=== PATIENT | female | born 1980 | race Caucasian/White ===

== ENCOUNTER → 2017-10-22 | Outpatient (CLI) | payer OTHER ==
--- NOTE | 2017-10-22 11:54 | US ---
EXAMINATION TYPE: US pelvis complete transvag DATE OF EXAM: 10/22/2017 COMPARISON: 2014 CLINICAL HISTORY: R10.2 Pelvic pain. TECHNIQUE: Transvaginal (TV) and Transabdominal (TA) tv supplemental adnexa and endometrium Date of LMP: 10/14/2017 EXAM MEASUREMENTS: Uterus: 8.7 x 6.7 x 4.7 cm Endometrial Stripe: 2.4 cm Right Ovary: 2.2 x 2.4 x 2.1 cm Left Ovary: 1.9 x 1.3 x 1.9 cm 1. Uterus: Retroverted heterogenous 2. Endometrium: thick 3. Right Ovary: cysts 1.0 x 1.1 x 1.9 cm, 1.3 x 0.8 x 0.9 cm 4. Left Ovary: small follicular cysts 5. Bilateral Adnexa: rt adnexa mass 2.0 x 1.6 x 2.1 cm. This is heterogenous with mixed echogenicity . 6. Posterior cul-de-sac: wnl IMPRESSION: 1. Right ovarian cyst. 2. A right ovarian mass is also present. Follow-up exam in 6 weeks is recommended.
== END | disposition home or self-care (01) ==
LOC: RADUSWWP 10:17
PROVIDERS: ATTEND Obstetrics & Gynecology
DX: N83.201 Unspecified ovarian cyst, right side (principal); N83.8 Other noninflammatory disorders of ovary, fallopian tube and broad ligament
CPT/HCPCS: 76830; 76856

== ENCOUNTER → 2017-11-26 | Outpatient (CLI) | payer OTHER ==
[2017-11-26 14:04] LABS: Basophils # (A) 0.1 k/uL (0-0.2); Basophils % (A) 1 %; Eosinophils # (A) 0.1 k/uL (0-0.7); Eosinophils % (A) 2 %; HCT 41.2 % (34.0-46.0); Lymphocytes # (A) 2.5 k/uL (1.0-4.8); Lymphocytes % (A) 30 %; MCH 27.9 pg (25.0-35.0); MCHC 31.5 g/dL (31.0-37.0); MCV 88.5 fL (80.0-100.0); Mean Platelet Volume 7.5; Monocytes # (A) 0.4 k/uL (0-1.0); Monocytes % (A) 5 %; Neutrophils # (A) 5.1 k/uL (1.3-7.7); Neutrophils % (A) 61 %; Platelet Count 352 k/uL (150-450); RBC 4.66 m/uL (3.80-5.40); RDW 12.8 % (11.5-15.5); WBC 8.4 k/uL (3.8-10.6)
== END | disposition home or self-care (01) ==
LOC: LABPAT 13:01
PROVIDERS: ATTEND Obstetrics & Gynecology
DX: Z01.818 Encounter for other preprocedural examination (principal)
CPT/HCPCS: 36415; 85025

== ENCOUNTER 2017-12-02 11:30 | Day surgery (SDC) | payer OTHER ==
[2017-11-24 09:29] VITALS: BMI 43.5
[~2017-12-02 11:30] MED LIST: DEXAMETHASONE SOD PHOSPHATE 10 MG/ML 1 ML VIAL IV ONE; HYDROmorphone 0.5 MG/0.5 ML SYRINGE IVP PRN; LACTATED RINGERS 1,000 ML IV SCH; LIDOCAINE 1% 20 ML VIAL (10MG/ML) FOR IV START INTRADERMA PRN; MIDAZOLAM 2 MG/2 ML VIAL IV PRN; ONDANSETRON 4 MG/2 ML VIAL IVP ONE; Pre Op ABX Message 1 EACH MISC MISCELLANE ONE
--- NOTE | 2017-12-02 12:13 | P.HPOB ---
History of Present Illness H&P Date: 12/02/17 Chief Complaint: Dysfunctional bleeding with thickened endometrium Arden is a 37-year-old female who has pelvic pain and heavy vaginal bleeding. In discussing her ultrasound and her pain is noted that she had a 2.4 cm endometrial lining. There is questionable polyp versus possible hyperplasia. She is scheduled for D&C with hysteroscopy. Risks/benefits/alternatives to this procedure were discussed with the patient in detail and all questions are answered for her prior to proceeding to the operating room. Long-term options will be discussed with her once we have pathology. On physical exam this is a well-developed well-nourished female whose HEENT is unremarkable. Her heart is regular, lungs are clear, extremities are without pain. Osteopathic exams unremarkable. Pelvic exam is otherwise unremarkable. Assessment dysfunctional heavy bleeding with thickened endometrium. Plan D&C with hysteroscopy. Past Medical History Past Medical History: No Reported History Additional Past Medical History / Comment(s): HX OF OVARIAN CYST ., STATES HAVING PAIN IN HER SIDES. History of Any Multi-Drug Resistant Organisms: None Reported Past Surgical History: No Surgical Hx Reported Additional Past Surgical History / Comment(s): ovarian cyst removed in 2004 Past Anesthesia/Blood Transfusion Reactions: Postoperative Nausea & Vomiting ( PONV) Additional Past Anesthesia/Blood Transfusion Reaction / Comment(s): PT THINKS PONV DUE TO NORCO. Past Psychological History: No Psychological Hx Reported Smoking Status: Never smoker Past Alcohol Use History: Rare Past Drug Use History: None Reported - Past Family History Father Family Medical History: No Reported History Medications and Allergies Home Medications Medication Instructions Recorded Confirmed Type No Known Home Medications [No 11/24/17 11/24/17 History Known Home Medications] Allergies Allergy/AdvReac Type Severity Reaction Status Date / Time Penicillins Allergy Rash/Hives Verified 11/24/17 09:15 Exam Osteopathic Statement: *. No significant issues noted on an osteopathic structural exam other than those noted in the History and Physical/Consult. - Vital Signs Vital signs: Vital Signs Temp Pulse Resp BP Pulse Ox 12/02/17 11:56 98.2 F 79 16 185/91 100
[2017-12-02] MEDS ORDERED: KETOROLAC 30 MG/ML 1 ML VIAL ONE (12:30)
[2017-12-02] MEDS ORDERED: LIDOCAINE 1% INJ 10MG/ML (20 ML MDV) ONE (12:30)
[2017-12-02] MEDS ORDERED: fentaNYL (PF) 50 MCG/ML 2 ML AMP ONE (12:30)
[2017-12-02] MEDS ORDERED: SUCCINYLCHOLINE CHLORIDE 100 MG/5 ML SYR IV ONE (12:30)
[2017-12-02] MEDS ORDERED: PROPOFOL 10 MG/ML 20 ML VIAL IV ONE (12:30)
[2017-12-02] MEDS ORDERED: MIDAZOLAM 2 MG/2 ML VIAL ONE (12:30)
--- NOTE | 2017-12-02 12:54 | P.OP ---
Date of Procedure: 12/02/17 Preoperative Diagnosis: Pelvic pain and heavy vaginal bleeding Postoperative Diagnosis: Same Procedure(s) Performed: D&C with hysteroscopy Anesthesia: ELENI Surgeon: Gavin Rodriguez Estimated Blood Loss (ml): 5 Pathology: other (Uterine curettings) Condition: stable Disposition: same day Operative Findings: Proliferative endometrium Description of Procedure: Arden was taken to the operating suite where a general anesthetic was found be adequate. She was prepped and draped in the normal sterile fashion and placed in the dorsal lithotomy position. Initially a weighted speculum was inserted into the vagina and the anterior lip of the cervix was identified and grasped with an Allis clamp. Cervix was then dilated and camera was inserted. Proliferative endometrium was noted possible polyp on the anterior surface of the uterine wall. Sharp curettings were then obtained and placed on Telfa and sent to pathology for evaluation. All instruments were then removed sponge, lap , needle counts are correct 2 and patient was then taken to the recovery room in stable and satisfactory condition. Plan - Discharge Summary New Discharge Prescriptions: New Ibuprofen [Motrin] 600 mg PO Q6HR PRN #30 tab PRN Reason: Pain Discharge Medication List Ibuprofen [Motrin] 600 mg PO Q6HR PRN #30 tab 12/02/17 [Rx] Follow up Appointment(s)/Referral(s): Gavin Rodriguez DO [Doctor of Osteopathic Medicine] - 10 Days Activity/Diet/Wound Care/Special Instructions: No heavy lifting, limit stairs and driving, and pelvic rest. If any high temperatures, heavy bleeding, or severe pain call my office Discharge Disposition: HOME SELF-CARE
[2017-12-02 13:03] VITALS: TEMP 97
[2017-12-02 13:19] VITALS: RESP 16
[2017-12-02] MEDS ORDERED: IBUPROFEN 200 MG TAB PO ONE (14:38)
[2017-12-02 15:15] VITALS: BP 143/82; PULSE 77
== END 2017-12-02 15:28 | disposition home or self-care (01) ==
LOC: OR 11:30
PROVIDERS: ATTEND Obstetrics & Gynecology
DX: R93.8 Abnormal findings on diagnostic imaging of other specified body structures (principal); Z88.0 Allergy status to penicillin
CPT/HCPCS: 81025; 88305; 58558; J2250; J1100; J2405; J2001; J3010; J1885; J0330; J2704

== ENCOUNTER → 2018-03-16 | Outpatient (CLI) | payer OTHER ==
[2018-03-16 15:34] LABS: Basophils % (A) 0 %; Eosinophils # (A) 0.2 k/uL (0-0.7); Eosinophils % (A) 3 %; HCT 38.5 % (34.0-46.0); HGB 12.3 gm/dL (11.4-16.0); Lymphocytes # (A) 2.2 k/uL (1.0-4.8); Lymphocytes % (A) 28 %; MCH 27.9 pg (25.0-35.0); MCHC 31.9 g/dL (31.0-37.0); MCV 87.5 fL (80.0-100.0); Mean Platelet Volume 7.9; Monocytes # (A) 0.4 k/uL (0-1.0); Monocytes % (A) 5 %; Neutrophils # (A) 4.9 k/uL (1.3-7.7); Neutrophils % (A) 62 %; Platelet Count 347 k/uL (150-450); RDW 13.5 % (11.5-15.5)
== END | disposition home or self-care (01) ==
LOC: LABPAT 15:01
PROVIDERS: ATTEND Obstetrics & Gynecology
DX: Z01.812 Encounter for preprocedural laboratory examination (principal)
CPT/HCPCS: 36415; 85025

== ENCOUNTER 2018-03-25 06:31 | Day surgery (SDC) | payer OTHER ==
[2018-03-16 14:50] VITALS: BMI 44.6
--- NOTE | 2018-03-24 18:25 | P.HPOB ---
History of Present Illness H&P Date: 03/24/18 Chief Complaint: menorrhagia Patient is a 37-year-old with heavy vaginal bleeding. She relates that she has such heavy bleeding with each cycle that she is unable to function and sometimes cannot leave her home. Is significantly impacting her activities of daily daily living. She is therefore scheduled for a D&C with hysteroscopy and NovaSure ablation. Risks/benefits/alternatives were discussed with the patient in detail and included with but not limited to bleeding, infection, perforation , thermal injuries and potentially chronic pain. Past Medical History Past Medical History: No Reported History Additional Past Medical History / Comment(s): HX OF OVARIAN CYST. HEAVY IRREGULAR MENSES History of Any Multi-Drug Resistant Organisms: None Reported Past Surgical History: No Surgical Hx Reported Additional Past Surgical History / Comment(s): ovarian cyst removed in 2004. 12/02/17 D & C w/HYSTEROSCOPY Past Anesthesia/Blood Transfusion Reactions: Postoperative Nausea & Vomiting ( PONV) Additional Past Anesthesia/Blood Transfusion Reaction / Comment(s): PT THINKS PONV DUE TO NORCO. Smoking Status: Never smoker - Past Family History Father Family Medical History: No Reported History Medications and Allergies Home Medications Medication Instructions Recorded Confirmed Type Ibuprofen [Motrin] 600 mg PO Q6HR PRN #30 tab 12/02/17 03/16/18 Rx Allergies Allergy/AdvReac Type Severity Reaction Status Date / Time Penicillins Allergy Rash/Hives Verified 03/16/18 14:46 Exam Osteopathic Statement: *. No significant issues noted on an osteopathic structural exam other than those noted in the History and Physical/Consult. - OBG Physical Exam Breast: both: normal (no masses) Abdomen: Morbidly obese Abdomen: bowel sounds normal, no diffuse tenderness, no bruit present, no guarding noted, no hepatomegaly, no splenomegaly, no mass Vulva: both: normal Vagina: normal moisture, no discharge Cervix: no lesion, no discharge Uterus: normal size, normal contour Adnexa: both: normal Anus/Rectum: normal perianal skin, no rectal mass, no hemorrhoids, heme negative
[~2018-03-25 06:31] MED LIST changes: -DEXAMETHASONE SOD PHOSPHATE 10 MG/ML 1 ML VIAL IV ONE; -LIDOCAINE 1% 20 ML VIAL (10MG/ML) FOR IV START INTRADERMA PRN; -MIDAZOLAM 2 MG/2 ML VIAL IV PRN; -ONDANSETRON 4 MG/2 ML VIAL IVP ONE; +ONDANSETRON 4 MG/2 ML VIAL IVP PRN; +fentaNYL (PF) 50 MCG/ML 2 ML AMP IV PRN
[2018-03-25] MEDS ORDERED: fentaNYL (PF) 50 MCG/ML 2 ML AMP ONE (07:45)
[2018-03-25] MEDS ORDERED: SUCCINYLCHOLINE CHLORIDE 100 MG/5 ML SYR IV ONE (07:45)
[2018-03-25] MEDS ORDERED: MIDAZOLAM 2 MG/2 ML VIAL ONE (07:45)
[2018-03-25] MEDS ORDERED: LIDOCAINE 1% INJ 10MG/ML (20 ML MDV) ONE (07:45)
[2018-03-25] MEDS ORDERED: PROPOFOL 10 MG/ML 20 ML VIAL IV ONE (07:45)
--- NOTE | 2018-03-25 08:20 | P.OP ---
Date of Procedure: 03/25/18 Preoperative Diagnosis: Menorrhagia Postoperative Diagnosis: Same with cervical polyp Procedure(s) Performed: Removal of cervical polyp and NovaSure with hysteroscopy Anesthesia: ELENI Surgeon: Gavin Rodriguez Estimated Blood Loss (ml): 2 Urine output (ml): 100 Pathology: other (Cervical polyp) Condition: stable Disposition: same day Operative Findings: Small cervical polyp removed with polyp forceps Description of Procedure: Patient was taken to the operating suite where a general anesthetic was found be adequate. She was prepped and draped in the normal sterile fashion placed in dorsal lithotomy position. Red rubber catheters used to drain the bladder of urine. And uterus was sounded to 10 cm. Initially a weighted speculum was inserted into the vagina and the anterior lip cervix identified and grasped with an Allis clamp. Cervix was then dilated and camera was inserted. A small cervical polyp was noted and was removed with polyp forceps. Once this was Pushed NovaSure system was brought in with a length of 5 and a width of 4.7 it was tested and enabled once it passes patency test. It didn't burn for 2 minutes. At the conclusion the burn camera was reinserted and good burn was noted. Sponge, lap, needle counts were all correct 2 at that point all instruments removed and patient was taken to the recovery room in stable and satisfactory condition. She will be discharged home once stable Plan - Discharge Summary New Discharge Prescriptions: New Ibuprofen [Motrin] 600 mg PO Q6HR PRN #30 tab PRN Reason: Pain No Action Ibuprofen [Motrin] 600 mg PO Q6HR PRN #30 tab PRN Reason: Pain Discharge Medication List Ibuprofen [Motrin] 600 mg PO Q6HR PRN #30 tab 12/02/17 [Rx] Ibuprofen [Motrin] 600 mg PO Q6HR PRN #30 tab 03/25/18 [Rx] Follow up Appointment(s)/Referral(s): Gavin Rodriguez DO [Doctor of Osteopathic Medicine] - 2 Weeks Activity/Diet/Wound Care/Special Instructions: No heavy lifting, limit stairs and driving, and pelvic rest. If any high temperatures, heavy bleeding, or severe pain call my office
[2018-03-25 08:35] VITALS: TEMP 97.1
[2018-03-25 09:06] VITALS: RESP 16
[2018-03-25] MEDS ORDERED: KETOROLAC 30 MG/ML 1 ML VIAL IVP ONE (09:06)
[2018-03-25 09:39] VITALS: BP 153/78; PULSE 67
== END 2018-03-25 10:37 | disposition home or self-care (01) ==
LOC: OR 06:31
PROVIDERS: ATTEND Obstetrics & Gynecology
DX: N84.0 Polyp of corpus uteri (principal); N92.0 Excessive and frequent menstruation with regular cycle; Z87.42 Personal history of other diseases of the female genital tract; Z88.0 Allergy status to penicillin
CPT/HCPCS: 81025; 88305

== ENCOUNTER → 2019-09-30 | Outpatient (CLI) | payer BC ==
--- NOTE | 2019-10-03 09:44 | MM ---
Reason for exam: screening (asymptomatic). Baseline mammogram. History: Family history of breast cancer in paternal aunt at age 50. Took hormonal contraceptives beginning at age 19. Physical Findings: Nurse did not find any significant physical abnormalities on exam. MG Screening Mammo w CAD Bilateral CC and MLO view(s) were taken. The breast tissue is heterogeneously dense. This may lower the sensitivity of mammography. There is a right lower inner quadrant lobulated 3.5 x 1.2cm mass 5.5cm from nipple. No suspicious abnormality on the left. These results were verbally communicated with the patient and result sheet given to the patient on 09/30/19. ASSESSMENT: Incomplete: need additional imaging evaluation, BI-RAD 0 RECOMMENDATION: Ultrasound of the right breast.
--- NOTE | 2019-10-03 09:48 | USB ---
Reason for exam: additional evaluation requested from abnormal screening. History: Family history of breast cancer in paternal aunt at age 50. Took hormonal contraceptives beginning at age 19. US Breast Workup Limited RT Right limited breast ultrasound including focal area of concern, retroareolar and axilla demonstrates a 3.4 x 1.4 x 0.9cm oval, hypoechoic lesion at 3 o'clock, oval and linear. Debris filled duct and cyst versus solid vascular lesion These results were verbally communicated with the patient and result sheet given to the patient on 09/30/19. ASSESSMENT: Suspicious, BI-RAD 4 RECOMMENDATION: Aspiration of the right breast. (+/- core biopsy) Called Dr. Salguero's office with mammographic findings. Cyst aspiration scheduled for 10/17/19 at 8:00. PRELIMINARY REPORT CALLED AND FAXED TO DR. SALGUERO ON 09/30/19.
== END | disposition home or self-care (01) ==
LOC: RADMAMWWP 15:21
PROVIDERS: ATTEND Family Medicine
DX: Z12.31 Encounter for screening mammogram for malignant neoplasm of breast (principal); R92.8 Other abnormal and inconclusive findings on diagnostic imaging of breast
CPT/HCPCS: 77067

== ENCOUNTER → 2019-10-14 | Day surgery (SDC) | payer BC ==
[2019-10-13 09:17] VITALS: BMI 45.1
[~2019-10-14] MED LIST changes: -HYDROmorphone 0.5 MG/0.5 ML SYRINGE IVP PRN; +LACTATED RINGERS 1,000 ML IV ONE; +LIDOCAINE 1% 20 ML VIAL (10MG/ML) FOR IV START INTRADERMA ONE; +LIDOCAINE 1% INJ 10MG/ML (20 ML MDV) ONE; -ONDANSETRON 4 MG/2 ML VIAL IVP PRN; +PROPOFOL 10 MG/ML 20 ML VIAL IV ONE; -Pre Op ABX Message 1 EACH MISC MISCELLANE ONE; -fentaNYL (PF) 50 MCG/ML 2 ML AMP IV PRN
[2019-10-14 09:10] VITALS: TEMP 97.8
--- NOTE | 2019-10-14 09:51 | P.PCN ---
Date of Procedure: 10/14/19 Procedure(s) Performed: BRIEF HISTORY: Patient is a 38-year-old pleasant white female scheduled for an elective colonoscopy as a part of screening for colorectal neoplasia. She has family history of colon cancer diagnosed in her mother at age 65. PROCEDURE PERFORMED: Colonoscopy With snare polypectomy PREOPERATIVE DIAGNOSIS: screening for colon cancer/family history of colon cancer. IV sedation per Anesthesia. PROCEDURE: After informed consent was obtained, the patient, was brought into the endoscopy unit. IV sedation was administered by Anesthesia under continuous monitoring. Digital rectal examination was normal. Initially the Olympus CF-160 flexible video colonoscope was then inserted in the rectum, gradually advanced into the cecum without any difficulty. Careful examination was performed as the scope was gradually being withdrawn. Ileocecal valve and the appendiceal orifice were visualized and appeared normal. Prep was excellent. Mucosa of the cecum, appeared normal. In the ascending colon there was a 7-8 mm sessile polyp that was removed by snare polypectomy. Rest of the ascending colon, transverse colon, descending colon, sigmoid colon, and rectum appeared normal. Retroflexion was performed in the rectum and no lesions were seen. The patient tolerated the procedure well. IMPRESSION: 7 mm sessile ascending colon polyp status post polypectomy Rest of the colon appeared normal RECOMMENDATIONS: Findings of this examination were discussed with the patient as well as a family. She was advised to follow with the biopsy doesn't have a repeat screening colonoscopy every 5 years because of the family history of colon cancer.. 14
[2019-10-14 10:16] VITALS: RESP 18
[2019-10-14 10:27] VITALS: BP 155/106; PULSE 69
== END ==
LOC: ORWHC2ENDO 08:56
PROVIDERS: ATTEND Internal Medicine Gastroenterology
DX: Z12.11 Encounter for screening for malignant neoplasm of colon (principal); K63.5 Polyp of colon; Z80.0 Family history of malignant neoplasm of digestive organs; Z88.0 Allergy status to penicillin
CPT/HCPCS: 81025; 88305; 45385; J2001; J2704

== ENCOUNTER → 2019-10-17 | Day surgery (SDC) | payer BC ==
[2019-10-17 07:34] VITALS: RESP 16; TEMP 97.9
[2019-10-17 09:30] VITALS: BP 157/85; PULSE 75
--- NOTE | 2019-10-17 12:05 | USB ---
EXAMINATION TYPE: US biopsy breast VAD RT, Postbiopsy MG diagnostic mammo RT wo CAD DATE OF EXAM: 10/17/2019 CLINICAL HISTORY: 38-year-old female R92.8 ABNORMAL MAMMOGRAM. TECHNIQUE: Ultrasound guided core biopsy of the 3:00 position right breast. COMPARISON: 09/30/2019 FINDINGS: The procedure of ultrasound guided core biopsy was explained to the patient. Benefits, alternatives, and risks were discussed. An informed consent was then obtained. The patient was placed in supine positioning for imaging and for the procedure. The overlying skin was prepped and draped in usual sterile fashion. Lidocaine was used as anesthetic into the skin and subcutaneous tissue up to area of concern in the 3:00 right breast. Under ultrasound guidance, 13-gauge vacuum-assisted mammotome Elite biopsy gun device was used to obtain 10 core samples. Following this, a ribbon clip was left in lesion. The patient tolerated the procedure well without any immediate complication. The patient was kept in the radiology department for short stay after the procedure and then discharged home in stable condition. Postprocedure mammogram shows clip appropriately positioned at the site of large focal asymmetry, approximately 2:00 position on the true lateral view. IMPRESSION: Successful, uncomplicated ultrasound guided core biopsy of the sizable, possible intraductal abnormality in the 2-3 o'clock right breast. Full pathology results to follow. Pathology Results: Benign RIGHT BREAST, 3:00 POSITION (CORE BIOPSIES): Fibroadenoma. Recommendation Follow up ultrasound of the right breast in 6 months. YAMILA
== END ==
LOC: RADUSWWP 07:19
PROVIDERS: ATTEND Family Medicine
DX: D24.1 Benign neoplasm of right breast (principal)
CPT/HCPCS: 88305; 77065; 19083; A4648; J2001

== ENCOUNTER → 2022-04-02 | Outpatient (CLI) | payer OTHER ==
--- NOTE | 2022-04-02 18:53 | XR ---
EXAMINATION TYPE: XR humerus LT DATE OF EXAM: 04/02/2022 COMPARISON: NONE HISTORY: Pain TECHNIQUE: 2 view FINDINGS: Shoulder joint and elbow joint appear intact. I see no fracture nor dislocation. IMPRESSION: Negative left humerus exam.
--- NOTE | 2022-04-03 08:31 | XR ---
EXAMINATION TYPE: XR shoulder complete LT DATE OF EXAM: 04/02/2022 COMPARISON: NONE HISTORY: Pain TECHNIQUE: Shoulder examined in 3 projections FINDINGS: The humeral head articulates with the glenoid. The acromio-clavicular junction is normal. No acute fractures or dislocations are evident. A follow up study can be performed 7-10 days from acute trauma for continued pain. IMPRESSION: 1. No acute osseous abnormality left shoulder
== END | disposition home or self-care (01) ==
LOC: RADXRMAIN 13:49
PROVIDERS: ATTEND Emergency Medicine
DX: M25.512 Pain in left shoulder (principal)

== ENCOUNTER → 2022-05-21 | Outpatient (CLI) | payer BC, OTHER ==
--- NOTE | 2022-05-21 22:45 | MR ---
EXAMINATION TYPE: MR shoulder LT wo con DATE OF EXAM: 05/21/2022 COMPARISON: Outside left shoulder x-ray May 08, 2022 HISTORY: Left shoulder pain for 10 weeks due to fall. TECHNIQUE: Multiplanar, multisequence imaging of the left shoulder is performed without contrast. FINDINGS: Rotator Cuff: Areas of increased signal throughout several portions of the distal supraspinatus and i nfraspinatus tendons with areas of tearing near the articular surface. Supraspinatus tendon is intact . Rotator cuff muscle bulk is preserved. Acromioclavicular Joint: Moderate narrowing and capsular hypertrophy. No significant spurring. Underl laura fat plane maintained. Glenohumeral Joint: Small to moderate size joint effusion. [id number] narrowing. No significant spurring. Labrum: The labrum appears grossly intact given limitation of non-arthrogram study. Biceps Tendon: The long head of biceps is not identified in normal location presumed dislocated. Tear ing is suspected as anchor in the superior labrum is not identified. Bone marrow signal: No focal abnormal marrow signal is appreciated. Other: No additional significant abnormality is appreciated. IMPRESSION: 1. Long head biceps dislocation and probable tear, correlate clinically. 2. Tendinosis and partial tearing throughout supraspinatus and infraspinatus tendons. No full-thickne ss retracted tear. 3. Fairly moderate degenerative changes as detailed above.
== END | disposition home or self-care (01) ==
LOC: RADMRIMAIN 20:00
PROVIDERS: ATTEND Orthopaedic Surgery
DX: M75.112 Incomplete rotator cuff tear or rupture of left shoulder, not specified as traumatic (principal); M19.012 Primary osteoarthritis, left shoulder; S43.005A Unspecified dislocation of left shoulder joint, initial encounter

== ENCOUNTER → 2022-07-04 | Outpatient (CLI) | payer SELFPAY ==
[2022-07-04 18:17] LABS: Anion Gap 10.1 mmol/L (10.00-18.00); Carbon Dioxide 26.1 mmol/L (20.0-27.5); Potassium 4.6 mmol/L (3.5-5.5)
[2022-07-04 18:25] LABS: Basophils # (A) 0.05 X 10*3/uL (0.00-0.10); Basophils % (A) 0.7 %; Eosinophils # (A) 0.22 X 10*3/uL (0.04-0.35); Eosinophils % (A) 3.2 %; HCT 44.1 % (37.2-46.3); Immature Grans, Automated 0.4 %; Lymphocytes # (A) 1.65 X 10*3/uL (0.90-5.00); Lymphocytes % (A) 24.3 %; MCH 30.4 pg (27.0-32.0); MCHC 31.7 g/dL (32.0-37.0); MCV 95.9 fL (80.0-97.0); Mean Platelet Volume 11.4 fL (9.5-12.2); Monocytes # (A) 0.48 X 10*3/uL (0.20-1.00); Monocytes % (A) 7.1 %; NRBC Per 100 WBC 0 /100 WBCS (0.0-0.0); Neutrophils # (A) 4.37 X 10*3/uL (1.80-7.70); Neutrophils % (A) 64.3 %; Platelet Count 338 X 10*3/uL (140-440); RDW 12.7 % (11.5-14.5)
== END | disposition home or self-care (01) ==
LOC: LABPAT 09:05
PROVIDERS: ATTEND Orthopaedic Surgery
DX: Z01.812 Encounter for preprocedural laboratory examination (principal); M75.42 Impingement syndrome of left shoulder
CPT/HCPCS: 80051; 85025

== ENCOUNTER 2022-07-11 06:10 | Day surgery (SDC) | payer BC, OTHER ==
[2022-07-09 11:34] VITALS: BMI 48.4
--- NOTE | 2022-07-10 08:57 | P.HPOR ---
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 She is having persistent anterior and lateral pain with overhead activity and at night. She's been on work restrictions. She denies previous injuries. Review of Systems As per HPI Past Medical History Past Medical History: No Reported History Additional Past Medical History / Comment(s): HX OF OVARIAN CYST. HEAVY IRREGULAR MENSES History of Any Multi-Drug Resistant Organisms: None Reported Past Surgical History: Tubal Ligation, Uterine Ablation Additional Past Surgical History / Comment(s): ovarian cyst removed in 2004. 12/02/17 D & C w/HYSTEROSCOPY. Colonoscopy 2018 Past Anesthesia/Blood Transfusion Reactions: Postoperative Nausea & Vomiting (PONV) Additional Past Anesthesia/Blood Transfusion Reaction / Comment(s): PT THINKS PONV DUE TO NORCO. Smoking Status: Never smoker - Past Family History Mother Family Medical History: Cancer Additional Family Medical History / Comment(s): stage 3 colon cancer Father Family Medical History: No Reported History Medications and Allergies Home Medications Medication Instructions Recorded Confirmed Type No Known Home Medications 10/04/19 07/09/22 History Allergies Allergy/AdvReac Type Severity Reaction Status Date / Time Penicillins Allergy Rash/Hives Verified 07/09/22 11:30 Physical Examination - Shoulder left Tenderness with palpation: anterior, bicipital groove Pain: with forward flexion ROM: abduction: 140 degrees ROM: forward flexion: 140 degrees ROM: internal rotation: lower lumbar ROM: external rotation: 70 degrees Strength: abduction: 5/5 Strength: external rotation: 5/5 Tests: internal impingement tests: positive Results The patient is a well-developed well-nourished female, approximate 5 foot 6, 300 pounds of endomorphic habitus. HEENT exam is nonfocal. Neck is supple. On the left shoulder, she is tender over the anterior subacromial space and bicipital groove. Tucker, Neer, and speed tests are positive. Her distal neurovascular appears intact in left upper extremity. - Diagnostic results Shoulder MRI: image reviewed (Reveals a partial-thickness tear involving the anterior aspect of the supraspinatus along with dislocation of the proximal biceps.) Assessment and Plan Assessment: Left partial thickness rotator cuff tear/biceps dislocation Plan: I talked to the patient at length regarding her condition along with treatment options. At this point she is quite symptomatic after this acute injury. After thorough discussion she opted to proceed with surgery. We'll plan to proceed with arthroscopic evaluation with probable subacromial decompression, possible rotator cuff debridement versus repair, in addition to possible biceps tenotomy. We will likely perform that as an outpatient procedure. Risks and benefits were discussed at length in layman's terms.
[~2022-07-11 06:10] MED LIST changes: +DEXAMETHASONE SOD PHOSPHATE 4 MG/ML 1 ML VIAL IV ONE; +HYDROmorphone 0.5 MG/0.5 ML SYRINGE IVP PRN; -LACTATED RINGERS 1,000 ML IV ONE; -LIDOCAINE 1% 20 ML VIAL (10MG/ML) FOR IV START INTRADERMA ONE; -LIDOCAINE 1% INJ 10MG/ML (20 ML MDV) ONE; +ONDANSETRON 4 MG/2 ML VIAL IVP ONE; -PROPOFOL 10 MG/ML 20 ML VIAL IV ONE; +ceFAZolin 3 GM in SODIUM CHLORIDE 0.9% 100 ML IVPB PRN
[2022-07-11] MEDS ORDERED: LIDOCAINE 1% (10MG/ML) FOR IV START INTRADERMA ONE (06:55)
[2022-07-11] MEDS ORDERED: fentaNYL (PF) 50 MCG/ML 2 ML AMP IV ONE (07:10)
[2022-07-11] MEDS ORDERED: MIDAZOLAM 2 MG/2 ML VIAL IV ONE (07:10)
--- NOTE | 2022-07-11 07:40 | P.ANPRN ---
Procedure Note - Anesthesia - Nerve Block Performed Left Interscalene Single Time Out Performed: Yes (0710) Date of Procedure: 07/11/22 Procedure Start Time: 07:14 Location of Patient: PreOp Indication: Acute Post-Operative Pain, Requested by Surgeon Specifically requested for management of pain by DrAshley: Adrian Wang Sedation Type: Sedate with meaningful contact maintained Preparation: Sterile Prep Position: Supine Catheter: None Needle Types: Pajunk Needle Gauge: 21 Ultrasound used to visualize needle placement: Yes Ultrasound used to observe medication spread: Yes Injectate: 0.5% Ropivacaine (see comment for volume) (30cc) Blood Aspirated: No Pain Paresthesia on Injection Noted: No Resistance on Injection: Normal Image Stored and Saved: Yes Events: Uneventful and Well Tolerated
[2022-07-11] MEDS ORDERED: LIDOCAINE 2% INJ 20 MG/ML (2 ML VIAL) ONE (07:45)
[2022-07-11] MEDS ORDERED: ROPIVACAINE 5 MG/ML 30 ML VIAL ONE (07:45)
[2022-07-11] MEDS ORDERED: PROPOFOL 10 MG/ML 20 ML VIAL IV ONE (07:45)
[2022-07-11] MEDS ORDERED: ePHEDrine 50 MG/ML 1 ML VIAL ONE (07:45)
[2022-07-11] MEDS ORDERED: SUCCINYLCHOLINE CHLORIDE 200 MG/10 ML VIAL IV ONE (07:45)
[2022-07-11] MEDS ORDERED: fentaNYL (PF) 50 MCG/ML 2 ML AMP ONE (07:45)
[2022-07-11] MEDS ORDERED: EPINEPHrine (PF) 1 ML in SODIUM CHLORIDE 0.9% IRRIGATIO 3,000 ML IRRIGATION ONE ×8 (08:27)
--- NOTE | 2022-07-11 09:11 | P.OP ---
Date of Procedure: 07/11/22 Preoperative Diagnosis: Left rotator cuff strain versus tear/proximal biceps rupture Postoperative Diagnosis: 1 cm rotator cuff tear/rupture long head proximal biceps Procedure(s) Performed: Left shoulder arthroscopic subacromial decompression/rotator cuff repair/biceps debridement Implants: Arthrex 5.5 mm swivel lock anchor 1 Anesthesia: [facility] Surgeon: Adrian Wang [employer] Sawyer #1: Antonio Vines Estimated Blood Loss (ml): 10 Pathology: none sent Condition: stable Disposition: PACU Indications for Procedure: The patient's a 41-year-old female who presents after injuring her left shoulder at work with significant shoulder pain despite conservative measures. A discussion of the risks and benefits of operative intervention versus continued conservative measures was made with the patient. She opted to proceed with surgery. Operative risks to include infection, neurovascular injury, development of blood clots, possible tendon rerupture, possible postoperative stiffness and need for subsequent procedures was discussed. Informed consent was obtained. Operative Findings: As below Description of Procedure: The patient was brought to the operating room, and after induction of general anesthesia was placed in a beachchair position. A preoperative interscalene block was placed for postoperative analgesia. I examined the left shoulder. There was no gross block to passive motion or gross glenohumeral instability. The left upper extremity was prepped and draped in normal fashion. The bony outlines the acromion, distal clavicle, and coracoid process were outlined with a skin marker. The glenohumeral joint was inflated with 50 mL of saline utilizing a spinal needle from posterior approach. A posterior portal was made through a 5 mm skin incision 1 cm medial and inferior to the posterior lateral border time. A blunt trocar was used to easily into the joint. Diagnostic arthroscopy was performed. An anterior portal was made just lateral to the coracoid process entering the joint above the subscapularis tendon. The subscapularis tendon appeared to be intact. Anterior labrum was intact. The inferior recess was inspected. The posterior labrum was intact. There was a complete rupture of the long head of the biceps. The remaining portion attached the superior labrum was debrided with a motorized shaver. On inspection the rotator cuff, a high-grade partial-thickness tear involving anterior aspect the supraspinatus was noted involving 80% of the tendon thickness. The arthroscope was then placed into the subacromial space. A lateral portal was made 2 centimeters inferior to the anterior lateral border of the acromion. The soft tissue on the undersurface of the acromion was debrided with a motorized shaver and electrocautery clearly defining the anterior medial and lateral borders as well as the distal clavicle. An anterior inferior acromioplasty was performed with a motorized rafael starting anterolateral, then extending this posteriorly, then extending this medially. I converted to a flat acromion and this was verified in the posterior and lateral viewing portals. The rotator cuff was then inspected. The anterior supraspinatus tear was completed with a shaver. This tissue was easily mobilized back to the greater tuberosity. The greater tuberosity was lightly decorticating with a shaver down to a bleeding bony surface. A fiber tape was passed through the rotator cuff. The tissue was easily mobilized. A lateral 5.5 mm swivel lock anchor was placed after appropriately tensioning tissue. Good purchase was obtained. Final arthroscopic view showed adequate compression at the footprint. The arthroscope was then removed. The portals were closed with simple 3-0 nylon sutures. A sterile dressing was applied in addition to a sling. The patient was then awoken from general anesthesia and transferred to recovery room in good condition. Blood loss was estimated at 10 mL. No complications were incurred. Sponge and needle counts were correct in the case. Dustin MENDOZA assisted and the major components of the case to include arm positioning, anchor placement, and rotator cuff repair.
[2022-07-11 09:19] VITALS: TEMP 96.8
[2022-07-11 10:23] VITALS: BP 136/87; PULSE 93; RESP 15
== END 2022-07-11 10:54 | disposition home or self-care (01) ==
LOC: OR 06:10
PROVIDERS: ATTEND Orthopaedic Surgery
DX: S46.012A Strain of muscle(s) and tendon(s) of the rotator cuff of left shoulder, initial encounter (principal); S46.112A Strain of muscle, fascia and tendon of long head of biceps, left arm, initial encounter; G89.18 Other acute postprocedural pain; M75.42 Impingement syndrome of left shoulder; Z87.42 Personal history of other diseases of the female genital tract; Z88.0 Allergy status to penicillin; X58.XXXA Exposure to other specified factors, initial encounter
CPT/HCPCS: 29827; 29826; 64415; 81025; 76942; C1713 ×2; C1894; J2250; J0330; J1100; J0690; J2405; J0171; J3010; J2795; J2704; J2001

== ENCOUNTER → 2024-03-22 | Outpatient (CLI) | payer BC ==
--- NOTE | 2024-03-22 11:54 | CT ---
EXAMINATION TYPE: CT abdomen pelvis wo con DATE OF EXAM: 03/22/2024 COMPARISON: None INDICATION: rlq pain DLP: 1974 mGycm, Automated exposure control for dose reduction was used. CONTRAST: 0 mL of Isovue 300. Study performed without Oral Contrast TECHNIQUE: Axial images were obtained from above the diaphragm to the pubic rami in the axial plane a t 5 mm thick sections. Reconstructed images are reviewed on the computer in the coronal plane. FINDINGS: Limited CT sections are obtained the lung bases. The lung bases are clear. CT ABDOMEN: Liver: Normal Spleen: Normal Pancreas: Normal Adrenal glands: The adrenal glands are normal. Gallbladder: Normal Kidneys: No masses are evident. No hydronephrosis is present. No cysts are present. There is a 0.3 cm calcification without obstruction lateral right mid kidney. A punctate calcification is inferior right kidney. Series 3 image 42. No hydronephrosis or hydroureter is evident. Aorta: Normal Inferior vena cava: Normal. CT PELVIS: Loops of bowel within the abdomen and pelvis are normal. Studies without oral contrast. No dilate d loops of bowel are evident. Appendix: Normal as visualized. No adjacent inflammatory change evident. Urinary bladder: Decompressed with limited evaluation. Genitourinary structures: Uterus is normal. Adnexa are normal. Osseous structures: No suspicious lytic or sclerotic lesions. IMPRESSION: 1. Couple of nonobstructing renal stones right kidney. 2. Normal appendix. 3. No suspicious abnormality account for patient's pain
[2024-03-22 15:48] LABS: Basophils # (A) 0.06 X 10*3/uL (0.00-0.10); Basophils % (A) 0.5 %; Eosinophils # (A) 1.91 X 10*3/uL (0.04-0.35); Eosinophils % (A) 16.3 %; HCT 45.8 % (37.2-46.3); Lymphocytes # (A) 2.14 X 10*3/uL (0.90-5.00); Lymphocytes % (A) 18.2 %; MCH 30.2 pg (27.0-32.0); MCHC 32.8 g/dL (32.0-37.0); MCV 92.3 FL (80.0-97.0); Mean Platelet Volume 11.6 FL (9.5-12.2); Monocytes # (A) 0.61 X 10*3/uL (0.20-1.00); Monocytes % (A) 5.2 %; NRBC Per 100 WBC 0 X 10*3/uL (0.00-0.01); Neutrophils # (A) 6.94 X 10*3/uL (1.80-7.70); Neutrophils % (A) 59.1 %; Platelet Count 345 X 10*3/uL (140-440); RBC 4.96 X 10*6/uL (4.10-5.20); RDW 12.4 % (11.5-14.5); WBC 11.74 X 10*3/uL (4.50-10.00)
[2024-03-22 15:57] LABS: ALT 97 U/L (8-44); AST 46 U/L (13-35); Albumin 4.6 g/dL (3.8-4.9); Albumin/Globulin Ratio 1.84 Ratio (1.60-3.17); Alkaline Phosphatase 103 U/L (41-126); Amylase 25 U/L (23-121); BUN/Creat Ratio 24.71 Ratio (12.00-20.00); Blood Urea Nitrogen 17.3 mg/dL (9.0-27.0); Calcium 10.3 mg/dL (8.7-10.3); Carbon Dioxide 23.5 mmol/L (21.6-31.8); Chloride 103 mmol/L (96-109); Globulin 2.5 g/dL (1.6-3.3); Glucose 95 mg/dL (70-110); Lipase 32 U/L (14-63); Potassium 5.1 mmol/L (3.5-5.5); Sodium 140 mmol/L (135-145); Total Bilirubin 0.5 mg/dL (0.3-1.2); Total Protein 7.1 g/dL (6.2-8.2)
== END | disposition home or self-care (01) ==
LOC: RADCTMAIN 10:54
PROVIDERS: ATTEND Family Medicine
DX: N20.0 Calculus of kidney (principal); R10.31 Right lower quadrant pain
CPT/HCPCS: 74176; 80053; 82150; 83690; 85025